=== PATIENT | female | born 1960 | race Caucasian/White ===

== ENCOUNTER 2019-01-17 08:43 | Emergency (ER) | payer BC, OTHER ==
[~2019-01-17] VITALS: Ht 157.5 cm; Wt 77.1 kg
[2019-01-17 08:53] VITALS: BP 142/78
[2019-01-17] MEDS ORDERED: KETOROLAC TROMETH 60MG/2ML VIAL IM ONE (10:15)
== END 2019-01-17 10:38 | disposition home or self-care (01) ==
LOC: EDBD 08:43 → ER 08:45
DX: S16.1XXA Strain of muscle, fascia and tendon at neck level, initial encounter (principal); S39.012A Strain of muscle, fascia and tendon of lower back, initial encounter; S30.1XXA Contusion of abdominal wall, initial encounter; S50.811A Abrasion of right forearm, initial encounter; I10 Essential (primary) hypertension; Z88.6 Allergy status to analgesic agent; Z88.8 Allergy status to other drugs, medicaments and biological substances
CPT/HCPCS: 71046; 72040; 72100; 96372; 99283; J1885